=== PATIENT | male | born 1945 | race Caucasian/White ===

== ENCOUNTER 2024-07-27 11:46 | Emergency (ER) | payer BC, SELFPAY ==
[2024-07-27] VITALS (19 sets, daily range): BP systolic 115–212; BP diastolic 58–94; BMI 27.0
[2024-07-27] MEDS: VALIUM INJECTION 2 MG IV ×2 (13:55→17:38)
[2024-07-27 13:59] LABS: % Basophils 0.5 % (0-2); % Eosinophils 0.3 % (0-6); % Immature Granulocytes 0.4 % (0-0.5); % Lymphocytes 6.7 % (20.5-51.1); % Monocytes 4.4 % (1.7-9.3); % Neutrophils 87.7 % (42.2-75.2); Absolute Lymphocytes 0.5 10^3/uL (1.2-3.4); Absolute Monocytes 0.3 10^3/uL (0.1-0.6); Absolute Neutrophils 6.8 10^3/uL (1.4-6.5); Hematocrit 38.5 % (39.0-52.0); Hemoglobin 13.4 g/dL (13.0-18.0); Mean Corp Hgb Conc. 34.8 g/dL (33.0-37.0); Mean Corpuscular Hgb 34.9 pg (27.0-31.0); Mean Corpuscular Volume 100.3 fL (80.0-94.0); Mean Platelet Volume 9.9 fL (7.4-10.4); Nucleated Red Blood Cells % 0 % (-); Platelet Count 228 10^3/uL (130-400); Red Blood Cell Count 3.84 10^6/uL (4.70-6.10); White Blood Cell Count 7.8 10^3/uL (4.8-10.8)
[2024-07-27 14:24] LABS: ALT (SGPT) 16 U/L (0-50); AST (SGOT) 22 U/L (17-59); Albumin 3.7 g/dl (3.5-5.0); Alkaline Phosphatase 60 U/L (38-126); Blood Urea Nitrogen 9 mg/dl (9-20); Calcium 9.4 mg/dl (8.4-10.2); Carbon Dioxide 27 mmol/L (22-30); Chloride 107 mmol/L (98-107); Estimated Creatinine Clearance 106 ml/min; Glucose 139 mg/dl (70-99); Potassium 4.2 mmol/L (3.5-5.1); Sodium 140 mmol/L (135-145); eGFR > 60.00
--- NOTE | 2024-07-27 15:13 | ED.GENMED ---
History of Present Illness
General
Chief Complaint: Dizziness
Time Seen by Provider: 07/27/24 12:58
History of Present Illness
History of Present Illness:
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 [place] fine yesterday and was able to play 9 holes of golf without difficulty. He
reportedly is noted to be hypertensive when standing during this time as well. Denies any headache but does report tinnitus when the vertigo is severe. No vision changes, chest pain, or shortness of breath. Did have a viral URI approximately 3 to
4 weeks ago
Past History
Past History
ED Past Medical History: HTN
ED Past Surgical History: Other (noncontributory)
Social History
Tobacco: Non-smoker
Living: with roommate
Employment: Employed
Review of Systems
Review of Systems
Allergies reviewed?: Yes
All Other Systems: ROS reviewed and negative except as documented in HPI and ROS
Phy Exam
Physical Exam
Physical Exam:
GEN: Well appearing, NAD, WDWN
HEENT: Oral mucosa moist, no scleral icterus, no nasal congestion
Cardiac: Regular rate and rhythm, no murmurs
Lung: No respiratory distress, no tachypnea
MSK: No gross deformity or injuries
Skin: Good color, no pallor or jaundice, no rashes
Neuro: AO x3; CN II-XII grossly intact. BUE strength 5/5 in all corley, sensation intact and symmetric. BLE strength 5/5 in all corley, sensation intact and symmetric. Unable to produce nystagmus despite provoking patient's symptoms with change in
position
Psych: Calm, cooperative
Course
Orders/Labs/Results
Orders:
Orders
07/27/24 11:48
Electrocardiogram (*1) Urgent
Reason for Study: Vertigo / Dizzy
EKG- Treatment ONCE
07/27/24 13:18
CT Head W/o Iv Contrast Urgent
Comment:
Reason For Exam: vertigo
diazePAM [Valium Injection] 2 mg IV NOW STA
07/27/24 13:49
Complete Blood Count/With Diff Urgent
Comprehensive Metabolic Panel Urgent
07/27/24 16:16
HydrALAZINE [Apresoline] 10 mg IV NOW STA
HydrALAZINE [Apresoline] 20 mg .ROUTE .STK-MED ONE
07/27/24 17:00
diazePAM [Valium Injection] 2 mg IV NOW STA
Abnormal Lab Results
07/27/24
13:49
RBC 3.84 L 10^6/uL
(4.70-6.10)
Hct 38.5 L %
(39.0-52.0)
MCV 100.3 H fL
(80.0-94.0)
MCH 34.9 H pg
(27.0-31.0)
Absolute Neuts (auto) 6.8 H 10^3/uL
(1.4-6.5)
Absolute Lymphs (auto) 0.5 L 10^3/uL
(1.2-3.4)
Neutrophils % 87.7 H %
(42.2-75.2)
Lymphocytes % 6.7 L %
(20.5-51.1)
Creatinine 0.5 L mg/dL
(0.7-1.3)
Glucose 139 H mg/dl
(70-99)
Total Protein 6.0 L g/dl
(6.3-8.2)
07/27/24 13:49
07/27/24 13:49
Vital Signs
Initial and Last Documented VS:
Initial Vital Signs
Temp Pulse Resp BP Pulse Ox
97.5 F 58 18 212/89 99
07/27/24 11:50 07/27/24 11:50 07/27/24 11:50 07/27/24 11:50 07/27/24 11:50
Last Documented Vital Signs
Temp Pulse Resp BP Pulse Ox
97.5 F 67 16 125/58 97
07/27/24 11:50 07/27/24 18:45 07/27/24 18:00 07/27/24 18:40 07/27/24 18:45
MDM/Problems Addressed
MDM/Problems Addressed:
Patient's neurologic exam is benign. He is profoundly vertiginous when ambulating however I see no evidence of active nystagmus. CT of the head and labs are reassuring. He was treated with IV diazepam with dramatic improvement in symptoms. Blood
pressure also down trended after diazepam and hydralazine. He is stable for outpatient management. Given recent viral URI we will treat with steroids as if this may be a vestibular neuritis
*Critical Care Note
Total Time (30-74mins, 75-104mins- exclusive of procedures): Not Applicable
ED Attending Note
-
Portions of this chart may have been created with voice recognition software.� Occasional wrong word or��sound alike� substitutions may have occurred due to the inherent limitations of voice recognition software.
Discharge Plan
Departure
Patient Disposition: Home (Routine Discharge)
Date of Disposition: 07/27/24
Time of Disposition: 18:22
Patient with high blood pressure during this ER visit?: No
Discharge Problem:
Benign paroxysmal positional vertigo
Instructions: Vertigo (a type of dizziness)
Prescriptions:
New
prednisone 20 mg tablet
40 mg PO DAILY 5 Days Qty: 10 0RF
diazepam 2 mg tablet
2 - 4 mg PO TID PRN (Reason: vertigo) Qty: 15 0RF
No Action
atorvastatin 80 MG tablet
80 mg PO DAILY
amlodipine 5 MG tablet
5 mg PO .IN THE AM
aspirin 81 MG tablet,delayed release (DR/EC)
81 mg PO DAILY
levothyroxine 88 MCG tablet
0.075 mg PO DAILY
metformin 1,000 MG tablet extended release 24hr
1,000 mg PO BID
cephalexin 500 MG tablet
500 mg PO DAILY Qty: 21 0RF
hydrocodone-acetaminophen [Vicodin] 1 EACH tablet
1 ea PO Q6HPRN PRN (Reason: pain) Qty: 30 0RF
naproxen sodium [Aleve] 220 MG tablet
440 mg PO BIDPRN PRN (Reason: pain) Qty: 0 0RF
metoprolol tartrate 12.5 MG tablet
12.5 mg PO BID Qty: 60 3RF
Referrals:
UNKNOWN - PT DOES,NOT KNOW [Family Provider] -
Interventions
Interventions:
*Risk Screen - Suicide Last Done: 07/27/24 11:49
*General Assessment Last Done: 07/27/24 11:50
*Neglect/Abuse Screening Last Done: 07/27/24 11:49
*ED- Fall Risk Assessment Last Done: 07/27/24 14:23
*Nursing Disposition Last Done: 07/27/24 18:55
ED- Neurological Assessment Last Done: 07/27/24 14:23
ED- Cardiac Assessment Last Done: 07/27/24 14:23
ED Swallowing Screen Last Done: 07/27/24 14:23
Discharge Date and Time
Discharge Date/Time: 07/27/24 18:56
Print Language: MARTINIQUAIS
[2024-07-27] MEDS: APRESOLINE 10 MG IV (16:19)
== END 2024-07-27 18:56 | disposition home or self-care (01) ==
LOC: EMR 11:46
PROVIDERS: Physician Assistant; EMERGENCY PHYSICIAN Emergency Medicine
DX: H81.10 Benign paroxysmal vertigo, unspecified ear (principal); I10 Essential (primary) hypertension
CPT/HCPCS: 96374; 96375; 99284; 70450; 80053; 85025; 93005

== ENCOUNTER → 2024-10-17 06:23 | Outpatient (REF) | payer MEDICARE, OTHER, SELFPAY ==
[2024-10-17 08:31] LABS: HDL Cholesterol 74 mg/dl; LDL Cholesterol, Calculated 73 mg/dl; Very Low Density Lipoprotein 27 mg/dl (0-30)
[2024-10-17 08:54] LABS: TSH 4.05 uIU/ml (0.47-4.68)
== END ==
LOC: RAD 06:23
PROVIDERS: ATTENDING PHYSICIAN Internal Medicine
DX: I25.810 Atherosclerosis of coronary artery bypass graft(s) without angina pectoris (principal); I65.23 Occlusion and stenosis of bilateral carotid arteries; I34.1 Nonrheumatic mitral (valve) prolapse; I77.810 Thoracic aortic ectasia; I10 Essential (primary) hypertension; E78.2 Mixed hyperlipidemia
CPT/HCPCS: 36415; 80061; 84443; 93880

== ENCOUNTER → 2024-10-24 08:47 | Outpatient (REF) | payer MEDICARE, BC, SELFPAY | LOC: RCS 08:47 | PROVIDERS: ATTENDING PHYSICIAN Internal Medicine; FAMILY PHYSICIAN Family Medicine | DX: I25.810 Atherosclerosis of coronary artery bypass graft(s) without angina pectoris (principal); I65.23 Occlusion and stenosis of bilateral carotid arteries; I34.1 Nonrheumatic mitral (valve) prolapse; I77.810 Thoracic aortic ectasia; I10 Essential (primary) hypertension; E78.2 Mixed hyperlipidemia | CPT/HCPCS: 93306 ==

== ENCOUNTER → 2024-11-08 10:53 | Outpatient (REF) | payer MEDICARE, BC, SELFPAY | LOC: RCS 10:53 | PROVIDERS: ATTENDING PHYSICIAN Internal Medicine | DX: I25.810 Atherosclerosis of coronary artery bypass graft(s) without angina pectoris (principal); I65.23 Occlusion and stenosis of bilateral carotid arteries; I34.1 Nonrheumatic mitral (valve) prolapse; I77.810 Thoracic aortic ectasia; I10 Essential (primary) hypertension; E78.2 Mixed hyperlipidemia | CPT/HCPCS: 78452; 93017; A9500; J2785 ==